=== PATIENT | female | born 1935 | race Caucasian/White ===

== ENCOUNTER 2016-12-31 04:06 | Emergency (ER) | payer OTHER ==
[2016-12-31 04:21] VITALS: BP 165/69
--- NOTE | 2016-12-31 04:21 | ED HEAD/FACIAL INJ COMPLAINT ---
History of Present Illness General Chief Complaint: Laceration Procedure Stated Complaint: HEAD LAC S/P FALL DENIES LOC Source: patient, family Exam Limitations: no limitations Vital Signs & Intake/Output Vital Signs & Intake/Output Vital Signs Date Time Temp Pulse Resp B/P B/P Pulse O2 O2 Flow FiO2 Mean Ox Delivery Rate 12/31 0421 97.9 63 18 165/69 95 Room Air Allergies Coded Allergies: No Known Allergies (12/31/16) Triage Nurses Notes Reviewed? 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 She states that she awoke to go to the bathroom, "because my stools are soft and it just comes out. " She states that she tripped and fell. Her head hit the corner of the dresser. She had no loss of consciousness. She was able to ambulate afterwards. She notes no other pain or injury. She notes the bleeding of a right forehead laceration self resolved. She has no dizziness or headache at present. She is otherwise well. Past History Medical History Any Pertinent Medical History? see below for history Cancer(s): renal cell carcinoma with mets to lung and brain, undergoing xrt Surgical History Surgical History: non-contributory Family History Hx Contributory? No Review of Systems Review of Systems Constitutional: Reports: no symptoms. EENTM: Reports: no symptoms. Respiratory: Reports: no symptoms. Cardiovascular: Reports: no symptoms. GI: Reports: no symptoms. Genitourinary: Reports: no symptoms. Musculoskeletal: Reports: no symptoms. Skin: Reports: no symptoms. Neurological/Psychological: Reports: no symptoms. Hematologic/Endocrine: Reports: no symptoms. Immunologic/Allergic: Reports: no symptoms. All Other Systems: Reviewed and Negative Physical Exam Physical Exam General Appearance: well developed/nourished, mild distress Head: 2cm right forehead laceration, no active bleeding. no focal bony tenderness. Eyes: Bilateral: PERRL, EOMI. Ears, Nose, Throat: normal pharynx, normal ENT inspection, hearing grossly normal Neck: normal inspection, supple Respiratory: normal breath sounds Cardiovascular: regular rate/rhythm Gastrointestinal: soft, non-tender Back: normal inspection Extremities: normal inspection, normal range of motion, no edema Psychiatric: awake, alert, oriented x 3 Cranial Nerves: normal hearing, normal speech, PERRL Coordination/Gait: normal gait Motor/Sensory: no motor/sensory deficits Skin: intact, normal color, warm/dry Lymphatic: no anterior cervical rosaura Progress Differential Diagnosis: ICH, orbit fracture, laceration Plan of Care: Orders Procedure Date/time Status CT HEAD WO IV CONTRAST 12/[address] CERV SPINE WO IV CONTRAST 12/31 420 Active Diagnostic Imaging: Viewed by Me: CT Scan. Discussed w/RAD: CT Scan. Radiology Impression: head ct... multiple metastases... no acute change Comments: PATIENT: DUC CABRALES PRESENT AGE: 81 PATIENT ACCOUNT NO: [id number] : 36 LOCATION: [facility] ORDERING PHYSICIAN: HARPREET CAN MD SERVICE DATE: 12/31/16 EXAM TYPE: CAT - CT CERV SPINE WO IV CONTRAST; CT HEAD WO IV CONTRAST EXAMINATION: NONCONTRAST HEAD CT NONCONTRAST CERVICAL SPINE CT INDICATION INFORMATION: Known brain metastases. Fall with forehead laceration. COMPARISON: None. TECHNIQUE: Separate noncontrast CT examinations of the head and cervical spine were performed. Coronal and sagittal images were created for each examination at the technologist workstation. FINDINGS: Head: There is no evidence of acute intracranial hemorrhage or territorial infarction. No abnormal mass effect or midline shift is seen. Roman to white matter differentiation is well preserved. No extra-axial fluid collections are identified. No hydrocephalus. Proportional prominence of the ventricles and sulcal spaces is consistent with mild volume loss. There are multiple hyperattenuating foci visualized, most prominent within the bilateral frontal and parietal lobes. There is surrounding hypoattenuation consistent with edema. These correspond to the clinical history of metastatic disease. No prior available for comparison to evaluate stability. Right high parietal subgaleal hematoma. No calvarial fracture.. The mastoid air cells and visualized portions of the paranasal sinuses are well aerated. Cervical spine: There is anatomic alignment of the vertebral bodies and posterior elements. The atlantoaxial and atlantooccipital articulations are intact. Vertebral body heights are maintained. There is multilevel intervertebral disc space narrowing with endplate osteophyte formation and facet arthropathy. No evidence of acute fracture. No prevertebral soft tissue swelling. Multiple nodules are seen at the lung apices. The thyroid gland is unremarkable. Enlarged abnormal lymph nodes are seen in the left supraclavicular region. IMPRESSION: 1. No acute intracranial hemorrhage. Multiple metastatic brain lesions are noted. 2. No acute fracture or malalignment of the cervical spine. Supraclavicular lymphadenopathy noted. Multiple pulmonary nodules. Moderate degenerative changes of the cervical spine. DICTATED BY: HUSSAIN POSADAS MD DATE/TIME DICTATED:12/31/16505 INFORMATION ASSURANCE ANALYST:SHERI DATE/TIME TRANSCRIBED:12/31/16505 CONFIDENTIAL, DO NOT COPY WITHOUT APPROPRIATE AUTHORIZATION. <Electronically signed in Other Vendor System> SIGNED BY: HUSSAIN POSADAS MD 12/31 0513 Departure Departure Disposition: HOME OR SELF CARE Condition: Stable Clinical Impression Primary Impression: Head injury Secondary Impressions: Brain metastases, Forehead laceration Departure Forms: Customer Survey General Discharge Information Comments discussed results at length, wound repair is excellent... ct scan non acute... pt safe for discharge. close follow up encouraged. Procedures Laceration/Wound Repair Laceration/Wound Repair: Wound Location: head Wound's Depth, Shape: linear Wound Length (cm): 2 Wound Explored: clean, no foreign body removed Irrigated w/ Saline (ccs): 100 Betadine Prep? No Wound Repaired With: Steri-strips, Dermabond
--- NOTE | 2016-12-31 05:13 | CT SCAN REPORT ---
EXAMINATION: NONCONTRAST HEAD CT NONCONTRAST CERVICAL SPINE CT INDICATION INFORMATION: Known brain metastases. Fall with forehead laceration. COMPARISON: None. TECHNIQUE: Separate noncontrast CT examinations of the head and cervical spine were performed. Coronal and sagittal images were created for each examination at the technologist workstation. FINDINGS: Head: There is no evidence of acute intracranial hemorrhage or territorial infarction. No abnormal mass effect or midline shift is seen. Roman to white matter differentiation is well preserved. No extra-axial fluid collections are identified. No hydrocephalus. Proportional prominence of the ventricles and sulcal spaces is consistent with mild volume loss. There are multiple hyperattenuating foci visualized, most prominent within the bilateral frontal and parietal lobes. There is surrounding hypoattenuation consistent with edema. These correspond to the clinical history of metastatic disease. No prior available for comparison to evaluate stability. Right high parietal subgaleal hematoma. No calvarial fracture.. The mastoid air cells and visualized portions of the paranasal sinuses are well aerated. Cervical spine: There is anatomic alignment of the vertebral bodies and posterior elements. The atlantoaxial and atlantooccipital articulations are intact. Vertebral body heights are maintained. There is multilevel intervertebral disc space narrowing with endplate osteophyte formation and facet arthropathy. No evidence of acute fracture. No prevertebral soft tissue swelling. Multiple nodules are seen at the lung apices. The thyroid gland is unremarkable. Enlarged abnormal lymph nodes are seen in the left supraclavicular region. IMPRESSION: 1. No acute intracranial hemorrhage. Multiple metastatic brain lesions are noted. 2. No acute fracture or malalignment of the cervical spine. Supraclavicular lymphadenopathy noted. Multiple pulmonary nodules. Moderate degenerative changes of the cervical spine.
== END 2016-12-31 04:53 ==
LOC: ERH 04:06
DX: S01.81XA Laceration without foreign body of other part of head, initial encounter (principal); S09.90XA Unspecified injury of head, initial encounter; C79.31 Secondary malignant neoplasm of brain; W19.XXXA Unspecified fall, initial encounter; Y93.9 Activity, unspecified; Y92.9 Unspecified place or not applicable

== ENCOUNTER 2017-02-01 12:33 | Observation (INO) | payer OTHER ==
[~2017-02-01] VITALS: Ht 157.5 cm; Wt 44.5 kg
--- NOTE | 2017-02-01 12:55 | ED AMS/SEIZURE/WEAK/DIZZY ---
History of Present Illness General Chief Complaint: Altered Mental Status Stated Complaint: BIBA FOR UNRESPONSIVE Source: family, old records, EMS Exam Limitations: unable to give history, clinical condition Vital Signs & Intake/Output Vital Signs & Intake/Output Vital Signs Date Time Temp Pulse Resp B/P B/P Pulse O2 O2 Flow FiO2 Mean Ox Delivery Rate 02/03 1108 Nasal 1.5L Cannula 02/03 0627 98.1 72 20 120/50 96 Nasal 1.5L Cannula 02/03 0000 Nasal 2.0L Cannula 02/02 2202 97.6 76 18 128/54 95 Nasal 1.5L Cannula 02/02 1422 98.2 60 20 118/60 93 ED Intake and Output 02/03 0000 02/02 1200 Intake Total 220 155 Output Total 400 200 Balance -180 -45 Intake, IV 100 155 Intake, Oral 120 0 Number 0 0 Bowel Movements Output, Urine 400 200 Allergies Coded Allergies: No Known Allergies (12/31/16) Reconcile Medications Amlodipine Besylate 5 MG TABLET 2 TAB PO DAILY BLOOD PRESSURE (Reported) Escitalopram Oxalate 10 MG TABLET 1 TAB PO DAILY DEPRESSION (Reported) Metoprolol Tartrate 50 MG TABLET 1 TAB PO BID BLOOD PRESSURE (Reported) Potassium Chloride 20 MEQ TAB.ER.PRT 1 TAB PO DAILY ELECTROLYTES (Reported) Simvastatin (Simvastatin*) 40 MG TABLET 1 TAB PO QPM CHOLESTEROL (Reported) Triage Nurses Notes Reviewed? yes HPI: Patient presents for evaluation of an episode of unresponsiveness. According to EMS the patient was found in her residence by family, with whom she lives, by her bed on the floor. She was not responsive to interaction. Family states that she is typically very high functioning. Past History Medical History Any Pertinent Medical History? see below for history Neurological: "SPOTS ON BRAIN' EENT: NONE Cardiovascular: NONE Respiratory: NONE Gastrointestinal: NONE Hepatic: NONE Renal: NONE Musculoskeletal: NONE Psychiatric: NONE Endocrine: NONE Cancer(s): renal cell carcinoma with mets to lung and brain, undergoing xrt Surgical History Surgical History: non-contributory Psychosocial History What is your primary language Chinese Family History Hx Contributory? No Review of Systems Review of Systems Constitutional: Reports: no symptoms. Comments pt unable to provide ROS due to clinical condition Physical Exam Physical Exam General Appearance: UNRESPONSIVE Comments: Dried blood in a "mustache pattern" with no apparent trauma after cleaning Gen.: Well-nourished, well-developed, no acute respiratory distress. Head: Normocephalic, atraumatic Eyes: Normal inspection bilaterally, unable to assess extraocular movements due to lack of cooperation, pupils small but reactive Ears: Normal inspection bilaterally Nose: Normal inspection Throat/mouth : Dry mucosa Neck: Cervical collar in place Heart: Regular rate and rhythm, no murmurs rubs or gallops Lungs: Clear to auscultation bilaterally with normal air entry Chest: No apparent trauma Back: No apparent trauma Abdomen: Soft, nondistended, normal bowel sounds, mild tympany Pelvis: Stable Extremities: Upper extremity is flexed at the elbow, bilateral Babinski sign, otherwise no trauma Neurologic: Unable to assess Skin: warm and dry Psychiatric: Unable to assess Core Measures ACS in differential dx? No CVA/TIA Diagnosis: No Severe Sepsis Present: No Septic Shock Present: No Progress Differential Diagnosis: arrythmia, anemia, CVA/stroke, dehydration, electrolyte imbalance, GI bleed, hypoglycemia, hypoxia, intracranial Hem., intracranial mass /tumor, pneumonia, seizure disorder, UTI/pyelo Plan of Care: Orders Procedure Date/time Status PT Evaluate & Treat 02/03 UNK Active Theraputic Activities 15 Min 02/03 UNK Complete Gait Training, 15 Min 02/03 UNK Complete PT EVAL LOW COMPLEX 20 MIN 02/03 UNK Complete Regular Diet 02/02 L Active Seizure Precautions 02/02 2359 Active OXYGEN SETUP (GEN) 02/02 1600 Complete [place], Insertion/Removal/Asses 02/02 1317 Active SWALLOW GOAL STATUS 02/02 UNK Complete SWALLOW CURRENT STATUS 02/02 UNK Complete Evaluation, Swallowing 02/02 UNK Complete OXYGEN SETUP CHG 02/02 UNK Complete OXYGEN 02/02 UNK Complete Current Medications Sig/Tayo Start time Last Medication Dose Stop Time Status Admin Dexamethasone 4 MG Q6 02/03 1200 AC (Decadron) Levetiracetam 500 MG Q12H 02/02 1700 AC 02/03 (Keppra) 0549 N/A 1 UNIT (No Carrier) Heparin Sodium 5,000 UNIT Q8 02/02 1400 AC 02/03 (Porcine) 0548 Omeprazole 20 MG DAILY AC 02/02 1312 AC 02/03 (Prilosec) 0639 Ondansetron HCl 4 MG Q6P PRN 02/02 0130 AC (Zofran) Hydralazine HCl 5 MG SEE ADMIN CRITERIA.. 02/01 2200 AC (Apresoline) Lorazepam 1 MG Q6PRN PRN 02/01 2200 AC (Ativan) Morphine Sulfate 2 MG Q4P PRN 02/01 2200 AC (Morphine) Diagnostic Imaging: Discussed w/RAD: CT Scan. Radiology Impression: PATIENT: DUC CABRALES PRESENT AGE: 81 PATIENT ACCOUNT NO: [id number] : 36 LOCATION: [facility] ORDERING PHYSICIAN: FILIBERTO FLETCHER MD SERVICE DATE: 02/01/17 EXAM TYPE: CAT - CT CERV SPINE WO IV CONTRAST; CT HEAD WO IV CONTRAST EXAMINATION: CT HEAD AND CT CERVICAL SPINE CLINICAL INFORMATION: Terminal cancer found unresponsive. COMPARISON: CT brain and CT cervical spine 12/31/2016. TECHNIQUE: 5 mm thin axial and 2.5 mm thin coronal images of brain were obtained. Subsequently 2.5 mm thin axial and 2 mm thin reformatted sagittal and coronal images of brain were obtained. Dose 780. FINDINGS: Brain: There are multiple hyperdense multiple lesions throughout both cerebral hemispheres with vasogenic edema there is a new large lesion measuring 2.2 cm in left frontoparietal region adjacent to the central sulcus image 21, series 3 with moderate vasogenic edema. Previously seen smaller lesions in the right frontal lobe and left frontal lobe have increased in size. There is a right posterior parietal no hyperdense lesion with edema but no midline shift. The lateral ventricles are enlarged and so are the cortical sulci. There is no intra-axial or extra-axial bleed. The bone windows reveal no calvarial abnormality. Bilateral paranasal sinuses and mastoid air cells are well-aerated. Cervical spine: On sagittal images there is mild straightening of cervical lordosis. Grade 1 anterolisthesis C4 over C5 and C5 over C6 is noted. Mild loss of C5-C6 at C4-C5 disc heights is noted. There is C2-C3 through C7-T1 bilateral facet joint hypertrophy and arthropathy. IMPRESSION: Multiple metastatic brain lesions. There are new brain lesions as well as the previously noted brain lesions are slightly larger. There is vasogenic edema in the new lesions. No midline shift seen. There is no calvarial lesions. No acute bleed is seen. Mild cerebral volume loss. Grade 1 anterolisthesis C4 over C5 and C5-C6 with degenerative disc changes at the C5-C6 and C4-C5 disc levels. There is no visible acute fracture or dislocation. There are degenerative facet joint arthropathy throughout the cervical spine. DICTATED BY: BRITTANY LONDONO MD DATE/ TIME DICTATED:02/01/171428 MEDICAL CENTER REPRESENTATIVE:SHERI DATE/TIME TRANSCRIBED: 02/01/171428 CONFIDENTIAL, DO NOT COPY WITHOUT APPROPRIATE AUTHORIZATION. < Electronically signed in Other Vendor System> SIGNED BY: BRY YA,BRITTANY 1447 Initial ED EKG: NSR, rate (83), LAFB Comments: 1539 have updated salome family on testing. They state that because she was being started on immune modulating her to treat her cancer, her steroids were being weaned. I suspect this is allowed the edema seen on CAT scan to increase resulting in her presentation today. The family does not want any heroic measures but they feel it's reasonable to continue her current medications. In fact she seems to have improved some during her emergency department stay, becoming more interactive. I have ordered Decadron. 17:47 family updated. vitals stable. pt to be placed in hospice. Departure Departure Disposition: STILL A PATIENT Condition: Stable Clinical Impression Primary Impression: Brain metastases Referrals: ZUHAIR CHAUDHRY MD (PCP/Family) Departure Forms: Customer Survey General Discharge Information Observation Note Spoke With: NOEL YA,NICOLA Lino Physician Advisor Notified: FILIBERTO PERKINS DO Place Patient In: Non-ED OBS Care Area Rationale for Observation: My rational for observation is as follows patient presents with unresponsiveness likely secondary to worsening brain metastasis and vasogenic edema. The patient cannot be treated as an outpatient under these circumstances. sHe was recently weaned to a lower dose of steroids and I feel this has likely contributed to worsening edema and her resulting unresponsiveness. I do not feel she can be treated as an outpatient because she is unable to care for herself and the level of care she currently requires is beyond the capacity of her family. They would be unable to provide the IV Decadron that the patient would benefit from. I feel she requires hospitalization for treatment with IV Decadron to hopefully decrease the edema and improve her clinical condition.
[2017-02-01 13:22] LABS: ABSOLUTE BASOPHIL COUNT 0.1 /CUMM (0.0-0.2); ABSOLUTE EOSINOPHIL COUNT 0 /CUMM (0.0-0.7); ABSOLUTE GRANULOCYTE CT 16.6 /CUMM (1.4-6.5); ABSOLUTE LYMPH COUNT 0.4 /CUMM (1.2-3.4); BASOPHIL % 0.4 % (0.0-2.0); EOSINOPHIL % 0 % (0-5); GRANULOCYTE % 91.6 % (42.2-75.2); HEMATOCRIT 46.3 % (37-47); MEAN CORPUSCULAR HGB 29.1 PG (27.0-31.0); MEAN CORPUSCULAR HGB CONC 31.5 G/DL (33.0-37.0); MEAN CORPUSCULAR VOLUME 92.5 FL (81.0-99.0); MEAN PLATELET VOLUME 6.4 FL (7.4-10.4); PLATELET COUNT 238 /CUMM (130-400); RBC DISTRIBUTION WIDTH 19.7 % (11.5-14.5); RED BLOOD CELL CT 5.01 /CUMM (4.20-5.40); WHITE BLOOD CELL COUNT 18.1 /CUMM (4.8-10.8)
--- NOTE | 2017-02-01 14:47 | CT SCAN REPORT ---
EXAMINATION: CT HEAD AND CT CERVICAL SPINE CLINICAL INFORMATION: Terminal cancer found unresponsive. COMPARISON: CT brain and CT cervical spine 12/31/2016. TECHNIQUE: 5 mm thin axial and 2.5 mm thin coronal images of brain were obtained. Subsequently 2.5 mm thin axial and 2 mm thin reformatted sagittal and coronal images of brain were obtained. Dose 780. FINDINGS: Brain: There are multiple hyperdense multiple lesions throughout both cerebral hemispheres with vasogenic edema there is a new large lesion measuring 2.2 cm in left frontoparietal region adjacent to the central sulcus image 21, series 3 with moderate vasogenic edema. Previously seen smaller lesions in the right frontal lobe and left frontal lobe have increased in size. There is a right posterior parietal no hyperdense lesion with edema but no midline shift. The lateral ventricles are enlarged and so are the cortical sulci. There is no intra-axial or extra-axial bleed. The bone windows reveal no calvarial abnormality. Bilateral paranasal sinuses and mastoid air cells are well-aerated. Cervical spine: On sagittal images there is mild straightening of cervical lordosis. Grade 1 anterolisthesis C4 over C5 and C5 over C6 is noted. Mild loss of C5-C6 at C4-C5 disc heights is noted. There is C2-C3 through C7-T1 bilateral facet joint hypertrophy and arthropathy. IMPRESSION: Multiple metastatic brain lesions. There are new brain lesions as well as the previously noted brain lesions are slightly larger. There is vasogenic edema in the new lesions. No midline shift seen. There is no calvarial lesions. No acute bleed is seen. Mild cerebral volume loss. Grade 1 anterolisthesis C4 over C5 and C5-C6 with degenerative disc changes at the C5-C6 and C4-C5 disc levels. There is no visible acute fracture or dislocation. There are degenerative facet joint arthropathy throughout the cervical spine.
--- NOTE | 2017-02-01 15:54 | RADIOLOGY REPORT ---
EXAMINATION: XR CHEST PORTABLE CLINICAL INFORMATION: An 81-year-old female, unresponsive, history of cancer. Suspected aspiration. COMPARISON: None. TECHNIQUE: Portable frontal view of the chest was obtained. FINDINGS: The cardiomediastinal silhouette is mildly enlarged. There are multiple ill-defined scattered lung nodules identified bilaterally, the largest seen at left upper lung zone, measures approximately 2.7 cm at its maximum dimension, may represent metastatic disease. Superimposed ill-defined patchy opacification is also noted at right lower lung field as well as left lower lung field, may represent superimposed pneumonia. There is no pleural effusion present. The visualized upper abdomen is unremarkable. IMPRESSION: Multiple scattered ill-defined lung nodules are noted bilaterally with the largest measuring 2.7 cm, seen at left upper lung zone, may represent metastatic disease in this patient with history of cancer. Superimposed ill-defined patchy opacities are also noted at both lung bases, may represent superimposed pneumonia.
--- NOTE | 2017-02-01 19:11 | History & Physical ---
YARA YA,[facility] 02/01/171909: General Information and HPI MD Statement: I have seen and personally examined DUC CABRALES and documented this H&P. The patient is a 81 year old F who presented with a patient stated chief complaint of [Altered mental status]. Source of Information: family Exam Limitations: not alert/orientated, clinical condition History of Present Illness: The patient is an 81 year old woman with a PMH of HTN, HLD, depression, and metastatic renal cell cancer diagnosed in November 2016. She had metastasis to the brain and received radiotherapy sessions in December 2016. She was then placed on dexamethasone 4 mg BID which was weaned off on Jan 15 2017 for her to receive a dose of Opdivo. She did not tolerate the medication and had episodes of weakness and vomitting which gradually resolved over about a week. She was in her usual active, communicative and ambulant state of health until last night when her family noted she was slightly confused and slept on the wrong side of her bed. This morning after she did not get up as usual, her son when to her bedroom around noon and found her unresponsive and fallen on the ground in her bedroom with stool smeared around the room. EMS was called and the patient was brought in to The ER. She received IV dexamethasone 8 mg in the ER and her mental status slightly improved to the point she was able to communicate, albeit in a non- verbal fashion by nodding yes to simple questions when asked by the familiar voices and faces of her family members. She was not responsive to clinical staff. Allergies/Medications Allergies: Coded Allergies: No Known Allergies (12/31/16) Past History Travel History Traveled to [place] past 21 day No Medical History Neurological: "SPOTS ON BRAIN' EENT: NONE Cardiovascular: NONE Respiratory: NONE Gastrointestinal: NONE Hepatic: NONE Renal: NONE Musculoskeletal: NONE Psychiatric: NONE Endocrine: NONE Cancer(s): renal cell carcinoma with mets to lung and brain, undergoing xrt NURSING CLINICAL DIRECTOR/Reproductive: NONE Surgical History Surgical History: non-contributory Past Family/Social History Family History Relations & Conditions if any Relation not specified for: *No pertinent family history Psychosocial History Where do you live? Home Who Do You Live With? child ETOH Use: denies use Illicit Drug Use: denies illicit drug use Review of Systems Review of Systems Constitutional: Reports: see HPI. Cardiovascular: Reports: syncope. Denies: chest pain, palpitations. Respiratory: Denies: cough, short of breath. GI: Denies: constipation, diarrhea (As per family). Neurological/Psychological: Reports: other (Aphasia). Exam & Diagnostic Data Last 24 Hrs of Vital Signs/I&O Vital Signs Date Time Temp Pulse Resp B/P B/P Pulse O2 O2 Flow FiO2 Mean Ox Delivery Rate 02/01 2011 97.7 79 18 138/60 96 Nasal Cannula 02/02 2000 Nasal 2.0L Cannula 02/01 1842 97.9 85 12 145/68 96 Nasal 2.0L Cannula 02/01 1803 98.9 84 14 153/70 97 Nasal 2.0L Cannula 02/01 1639 97.0 78 22 125/60 97 Nasal Cannula 02/01 1432 97.6 81 18 151/68 95 Nasal 2.0L Cannula 02/01 1317 98.4 79 22 164/70 96 Nasal 2.0L Cannula 02/01 1311 96 Nasal 2.0L Cannula 02/01 1256 98.6 80 16 191/79 96 Nasal 2.0L Cannula Intake & Output 02/01 1600 02/01 0800 02/01 0000 Intake Total Output Total 400 Balance -400 Output, Urine 400 Patient 98 lb Weight Physical Exam General Appearance No Acute Distress, Drowsy, minimally cooperative Skin No Breakdown Skin Temp/Moisture Exam: Warm/Dry Sepsis Skin Exam (color): Normal for Ethnicity HEENT Atraumatic, PERRLA, EOMI, Mucous Membr. moist/pink Neck Supple, No JVD, No thryomegaly, +2 Carotid Pulse wo Bruit Lymphatic Cervical nl Cardiovascular Regular Rate, Normal S1, Normal S2, No Murmurs Lungs Clear to Auscultation, Normal Air Movement Abdomen Normal Bowel Sounds, Soft, No Tenderness, No Hepatospenomegaly, No Masses Neurological Reflexes 2+ (In upper limbs), Hypertonia in legs, Babinski reflex positive bilateral, Sluggish knee jerk bilateraly Extremities No Edema, Normal Pulses Vascular Normal Pulses, Pulses Symmetrical Last 24 Hrs of Labs/Chandra: Laboratory Tests 02/01/17 1305: Urine Color YEL, Urine Clarity CLEAR, Urine pH 6.0, Ur Specific [place] 1.020, Urine Protein 100 H, Urine Ketones NEG, Urine Nitrite NEG, Urine Bilirubin NEG, Urine Urobilinogen 0.2, Ur Leukocyte Esterase NEG, Ur Microscopic SEDIMENT EXAMINED, Urine RBC 5-10 H, Urine WBC RARE, Ur Epithelial Cells RARE, Urine Hemoglobin SMALL H, Urine Glucose NEG 02/01/17 1258: Anion Gap 13, Estimated GFR > 60, BUN/Creatinine Ratio 35.0 H, Glucose 135 H, Calcium 9.0, Total Bilirubin 0.8, AST 31, ALT 58 H, Alkaline Phosphatase 134 H , Troponin I 0.26 *H, Total Protein 6.3, Albumin 3.2 L, Globulin 3.1, Albumin/ Globulin Ratio 1.0 L, TSH 1.180, Thyroxine (T4) 6.1, Thyroxine Binding Indx 38.9, CBC w Diff MAN DIFF ORDERED, RBC 5.01, MCV 92.5, MCH 29.1, RDW 19.7 H, MPV 6.4 L, Gran % 91.6 H, Lymphocytes % 2.3 L, Monocytes % 5.7, Eosinophils % 0, Basophils % 0.4, Absolute Granulocytes 16.6 H, Absolute Lymphocytes 0.4 L, Absolute Monocytes 1.0 H, Absolute Eosinophils 0, Absolute Basophils 0.1, Platelet Estimate VERIFIED BY SMEAR, Polychromasia 1+, Anisocytosis 1+, PUBS MCHC 31.5 L, Serum Alcohol < 10.0 02/01/17 1255: Troponin I Cancelled 02/01/17 1205: Urine Opiates Screen < 100.00, Methadone Screen 46, Barbiturate Screen < 60, Ur Phencyclidine Scrn < 6.00, Amphetamines Screen < 100, U Benzodiazepines Scrn < 85, Urine Cocaine Screen < 50, Urine Cannabis Screen < 5.00 Microbiology 02/01 131 URINE ROUT: Urine Culture - CAN Cancelled: DUP.ORDER SEE [id number] 02/01 1305 URINE ROUT: Urine Culture - CAN Cancelled: DUP ORDER 02/01 1305 URINE ROUT: Urine Culture - RECD Diagnostic Data Other Results CT head, cervical spine, chest x-ray: 1. Multiple metastatic brain lesions. There are new brain lesions as well as the previously noted brain lesions are slightly larger. There is vasogenic edema in the new lesions. No midline shift seen. There is no calvarial lesions. 2 No acute bleed is seen. 3. Mild cerebral volume loss. 4. Grade 1 anterolisthesis C4 over C5 and C5-C6 with degenerative disc changes at the C5-C6 and C4-C5 disc levels. There is no visible acute fracture or dislocation. There are degenerative facet joint arthropathy throughout the cervical spine. 5. Multiple scattered ill-defined lung nodules are noted bilaterally with the largest measuring 2.7 cm, seen at left upper lung zone, may represent metastatic disease in this patient with history of cancer. Superimposed ill-defined patchy opacities are also noted at both lung bases, may represent superimposed pneumonia. Assessment/Plan Assessment: The patient is an 81 year old woman with a PMH of HTN, HLD, depression, and metastatic renal cell cancer diagnosed in November 2016. She had metastasis to the brain and received radiotherapy sessions in December 2016. She was then placed on dexamethasone 4 mg BID which was weaned off on Jan 15 2017 for her to receive a dose of Opdivo. She did not tolerate the medication and had episodes of weakness and vomitting which gradually resolved over about a week. She now presents with altered mental status and examination and radiological features in keeping with vasogenic cerebral edema from brain metastases. She has responded slightly to dexamethasone IV 8 mg and her family is considering hospice care if she does not improve. Labs: WBC 18.1, neutrophils 91%, hemoglobin 14.6, hematocrit 46.3, platelet 238, sodium 136, BUN 21, creatinine 0.6, glucose 135, ALT 58, alkaline phosphatase 134, troponin 0.26. UA U tox unremarkable. Her overall picture is in keeping with vasogenic cerebral edema from brain metastasis. Her prognosis is poor but her family want to try some dexamethasone. If no significant response they will like the patient to be in inpatient hospice. Problem list 1. Metastatic renal cell carcinoma 2. Vasogenic cerebral edema from brain metastases 3. Toxic encephalopathy 4. Hypertension 5. Lung nodules-likely metastatic Plan * Patient's family are considering hospice care if patient does not improve with dexamethasone * Place in General Medicine observation * IV dexamethasone 4 mg Q 6hrsX4 doses * NPO as patient is an aspiration risk * Monitor vital signs closely * IV morphine 4 Mg Q6prn for severe pain * IV Zofran or Compazine PRN for nausea vomiting * IV ativan 1 mg Q 6hrs for seizure * If patient develops seizures overnight, start loading dose of IV Keppra * Give IV hydralazine 5 mg Q 4hrs for SBP>160 mmhg * DVT prophylaxis with ALPS * DNR/DNI * Hospice consult in a.m As Ranked By This Provider Problem List: 1. Brain metastases 2. Head injury Core Measures/Miscellaneous Acute Coronary Syndrome ACS Diagnosis: No Cerebrovascular Accident CVA/TIA Diagnosis: No Congestive Heart Failure CHF Diagnosis: No Venous Thromboembolism VTE Risk Factors: Acute medical illness, Age > 40 No [facility] VTE prophylaxis d/t: No contraindications No VTE Pharm Prophylaxis d/t: No contraindications VTE Diagnosis: No VTE Type: NONE VTE Confirmed by (Test): NONE Severe Sepsis Severe Sepsis Present: No Septic Shock Septic Shock Present: No Miscellaneous Documentation Attending Case Discussed With: ZAK HUGHES MD Primary Care Physician: ZUHAIR CHAUDHRY MD Patient sees these Specialists Dr. Ordonez, [place] [facility] Level of Patient Care: General Medicine ZAK HUGHES 02/01/17 0794: General Information and HPI Allergies/Medications Home Med list Amlodipine Besylate 5 MG TABLET 2 TAB PO DAILY BLOOD PRESSURE (Reported) Escitalopram Oxalate 10 MG TABLET 1 TAB PO DAILY DEPRESSION (Reported) Metoprolol Tartrate 50 MG TABLET 1 TAB PO BID BLOOD PRESSURE (Reported) Potassium Chloride 20 MEQ TAB.ER.PRT 1 TAB PO DAILY ELECTROLYTES (Reported) Simvastatin (Simvastatin*) 40 MG TABLET 1 TAB PO QPM CHOLESTEROL (Reported) Attending MD Review Statement Attending Statement Attending MD Statement: examined this patient, discuss w/resident/PA/PROCESS ENGINEERING INTERN, agreed w/resident/PA/PROCESS ENGINEERING INTERN, discussed with family, reviewed EMR data (avail), reviewed images, amended to note Attending Assessment/Plan: CC: found unresponsive PMH: HTN, HLD, depression, metastatic renal cell cancer Patient was brought in wire ambulance by her family for found unresponsive on the floor. As per EMS patient lives with her family and last time seen normal was on night before when she went to bed, according to family usually patient is alert and oriented but last night she was more confused. When in the morning she did not come out even at known time they went to check on her and found her on the floor, unresponsive. She was lying next to her bed and medics noticed a plastic garbage pail at bedside which was broken. Family also noticed large amount of stool and dried and scattered over the room, as if she moved around. According to family patient has metastatic renal cell cancer, for which she received radiotherapy to her brain and was started on Decadron orally. Treatment of Decadron was tapered off to try different chemotherapy which patient did not tolerate it well and had nausea and vomiting for which she was admitted to [place]. At that time that treatment was discontinued and patient was resumed on low-dose Decadron on Wednesday, patient was active, talking and ambulating the last night according to family. According to ER note patient was nonverbal, nonresponsive to verbal stimuli upon arrival, opened eyes for pain. But according to family she improved a little bit in ER. Family did not witness any seizures along this course. Vitals: Afebrile, pulse in 70s to 80s, RR 18, blood pressure 164/70, saturating well on room air. On examination: Limited examination as patient does not respond to verbal stimuli, pupils equal bilaterally reactive to light. Does not follow instructions. Spontaneously moves right upper extremity, mild drooping of angle of mouth on left side, abdomen soft, nontender bowel sounds present, CVS: S1-S2 RRR. RS: Unremarkable. Labs: WBC 18.1, neutrophils 91%, hemoglobin 14.6, hematocrit 46.3, platelet 238, sodium 136, BUN 21, creatinine 0.6, glucose 135, ALT 58, alkaline phosphatase 134, troponin 0.26. UA U tox unremarkable. CT head, cervical spine, chest x-ray: 1. Multiple metastatic brain lesions. There are new brain lesions as well as the previously noted brain lesions are slightly larger. There is vasogenic edema in the new lesions. No midline shift seen. There is no calvarial lesions. 2 No acute bleed is seen. 3. Mild cerebral volume loss. 4. Grade 1 anterolisthesis C4 over C5 and C5-C6 with degenerative disc changes at the C5-C6 and C4-C5 disc levels. There is no visible acute fracture or dislocation. There are degenerative facet joint arthropathy throughout the cervical spine. 5. Multiple scattered ill-defined lung nodules are noted bilaterally with the largest measuring 2.7 cm, seen at left upper lung zone, may represent metastatic disease in this patient with history of cancer. Superimposed ill-defined patchy opacities are also noted at both lung bases, may represent superimposed pneumonia. A and P 81 year old female with a history of metastatic renal cell carcinoma presented with altered mental status, found unresponsive on floor. Even though her mental status improved to some extent while in ER, patient still does not respond to verbal stimuli. Does not have any meaningful communication. Findings of worsening intracranial lesions with vasogenic edema are discussed with family. They are aware of poor prognosis but according to son she usually gets better with dexamethasone and wants to give it a try, if she does not improve appropriately they will consider in-house hospice care in morning. There are certain about DNR and DNI and no heroic measures. I also discussed about possibility of seizures, may require Ativan and Keppra if she develops seizures overnight. Given her mental status it is unsafe to give any by mouth medications including her regular antihypertensives. There is no history of fever or chills or chest pain or cough suggestive of pneumonia mentioned on radiograph. It probably represent pulmonary nodule. Leukocytosis can be explained by dexamethasone, patient was receiving at home. + Encephalopathy + Metastatic brain lesion + Metastatic renal cell carcinoma + Multiple lung nodules + History of hypertension - Observe on general medical floor - Continue Decadron 8 mg IV every 8 hours - Continue to monitor neuro status every 4 hours with neuro checks - Nothing by mouth - Saline lock IV - When necessary morphine IV for severe pain - When necessary IV Zofran or Compazine for nausea vomiting - When necessary Ativan for seizure - If patient develops seizures overnight, start loading dose of IV Keppra - If patient spikes fever overnight, start her on Unasyn for possible postobstructive pneumonia. -If persistently hypertensive, try small dose of IV hydralazine - Hold all by mouth medications - Hospice consult in a.m.
[2017-02-01] MEDS ORDERED: AMLODIPINE BESYL5 M1 PO (19:34)
[2017-02-01] MEDS ORDERED: SIMVASTATIN40 M1 PO (19:36)
[2017-02-01] MEDS ORDERED: METOPROLOL TART50 M1 PO (19:36)
[2017-02-01] MEDS ORDERED: ESCITALOPRAM OX10 MG PO (19:36)
[2017-02-01] MEDS ORDERED: POTASSIUM CHLO20 ME2 PO (19:37)
[2017-02-01 20:11] VITALS: BP 138/60
[2017-02-02 07:28] VITALS: BP 140/60
--- NOTE | 2017-02-02 08:22 | PN- Housestaff ---
SANTOSH YA,EWA 02/02/17 0822: Subjective Follow-up For: Metastatic renal cell cancer Episode of altered mental status ? Seizure Complaints: no complaints Subjective: Patient is seen and examined at the bedside. She is having expressive aphagia. Also should respond to verbal commands. She was not oriented x3. Review of Systems Constitutional: Denies: no symptoms. Comments: Patient cannot comment because of her clinical condition. Objective Last 24 Hrs of Vital Signs/I&O Vital Signs Date Time Temp Pulse Resp B/P B/P Pulse O2 O2 Flow FiO2 Mean Ox Delivery Rate 02/02 1422 98.2 60 20 118/60 93 02/02 0800 Nasal 2.0L Cannula 02/02 0728 97.8 74 20 140/60 95 Nasal 2.0L Cannula 02/02 0000 96 Nasal 2.0L Cannula 02/01 2011 97.7 79 18 138/60 96 Nasal Cannula 02/01 2000 Nasal 2.0L Cannula 02/01 1842 97.9 85 12 145/68 96 Nasal 2.0L Cannula 02/01 1803 98.9 84 14 153/70 97 Nasal 2.0L Cannula 02/01 1639 97.0 78 22 125/60 97 Nasal Cannula Intake & Output 02/02 1600 02/02 0800 05 0000 Intake Total 155 0 Output Total 200 200 700 Balance -200 -45 -700 Intake, IV 155 Intake, Oral 0 0 Number 0 Bowel Movements Output, Urine 200 200 700 Patient 44.452 kg Weight Physical Exam General Appearance: Alert, Cooperative, No Acute Distress, generalized muscle wasting, hair loss, Skin: dryness of the skin, Neck: Supple, No JVD Cardiovascular: Normal S1, Normal S2 Lungs: Clear to Auscultation, Normal Air Movement Abdomen: Soft, No Tenderness Extremities: No Clubbing, No Cyanosis, No Edema Vascular: Normal Pulses Assessment/Plan Assessment: 81 year old woman with a PMH of HTN, HLD, depression, and metastatic renal cell cancer diagnosed in November 2016. She had metastasis to the brain and received radiotherapy sessions in December 2016. She was then placed on dexamethasone 4 mg BID which was weaned off on Jan 15 2017 for her to receive a dose of Opdivo. She did not tolerate the medication and had episodes of weakness and vomitting which gradually resolved over about a week. She was in her usual active, communicative and ambulant state of health until last night when her family noted she was slightly confused and slept on the wrong side of her bed. BIBA to [facility] emergency when found to be unresponsive on the ground in her bedroom with stool smeared around the room. Vital signs -temperature 98.2, pulse 60, respiratory rate 20, blood pressure 118 /60, SPO2 93% Pertinent labs -WBC 18.1, granulocytes 91.6, lymphocyte 2.3,Na -136, urine protein 100, Urine culture-no growth after [address] scan of the head -Multiple metastatic brain lesions. There are new brain lesions as well as the previously noted brain lesions are slightly larger. There is vasogenic edema in the new lesions. No midline shift seen. There is no calvarial lesions. Plan - * It was planned, initially, that the patient is going towards hospice care. We placed a consult for hospice nurse, did swallow evaluation and talked to the family. Family is very clear about the prognosis and they do not want any active intervention. * Patient passes swallow evaluation and they started patient on pure and thin diet. She is able to take 100% of her meal. * For the inpatient hospice, patient shouldn't need some criteria, but she is not fitting in, so we will go again for hospice evaluation tomorrow and decide from there. * We placed a consult for oncologist and he advised to continue dexamethasone in high doses. * We will continue inj dexamethasone 4 milligrams IV every 6 hourly. He also advised to place a consult to neurologist for evaluation of a seizure. * We started patient on prophylactic Keppra 500mg by mouth twice a day. * Plan is to discuss with the family about the goals of care and CODE STATUS tomorrow Diet -pure and thin diet DVT prophylaxis-ALP S/heparin CODE STATUS-DNR/DNI Problem List: 1. Cachexia 2. Metastatic renal cell carcinoma Pain Ratin Pain Location: Generalized body Pain Goal: Remain pain free Pain Plan: [id number] Tomorrow's Labs & Rationales: CBC, BEP DVT/Prophylaxis: mechanical, pharmacological SHREE SANCHES 02/02/17 1148: Attending Review Statement Attending Statement Attending MD Statement: examined this patient, discuss w/resident/PA/STEEL HANDLER, agreed w/resident/PA/STEEL HANDLER, discussed with family, reviewed EMR data (avail), discussed with nursing, discussed with case mgmt, reviewed images, amended to note Attending Assessment/Plan: "81 year old female with a history of metastatic renal cell carcinoma presented with altered mental status, found unresponsive on floor. Even though her mental status improved to some extent while in ER, patient still does not respond to verbal stimuli. Does not have any meaningful communication. Findings of worsening intracranial lesions with vasogenic edema are discussed with family. They are aware of poor prognosis but according to son she usually gets better with dexamethasone and wants to give it a try, if she does not improve appropriately they will consider in-house hospice care in morning. There are certain about DNR and DNI and no heroic measures. I also discussed about possibility of seizures, may require Ativan and Keppra if she develops seizures overnight. Given her mental status it is unsafe to give any by mouth medications including her regular antihypertensives. There is no history of fever or chills or chest pain or cough suggestive of pneumonia mentioned on radiograph. It probably represent pulmonary nodule. Leukocytosis can be explained by dexamethasone, patient was receiving at home" ASSESSMENT 1. Metastatic renal cell carcinoma 2. Encephalopathy 3. Mets to brain and lung 4. hypertension. 5. Brain edema. PLAN admit to inpatient medical services follows oncology Dr Norris at [place], family aware about prognosis and does not want heroic measures. c/w iv steroids for now, cont supportive care. obtain previous medical records. consult oncology for prognostication, consult hospice, obtain speech/swallow consult. gi/dvt prophyalxis DNR/DNI
[2017-02-02 14:22] VITALS: BP 118/60
--- NOTE | 2017-02-02 18:40 | Cons- Oncology ---
General Information and HPI Consulting Request Date of Consult: 02/02/17 Requested By: SHREE SANCHES MD Reason for Consult: metastatic renal cell Source of Information: old records Exam Limitations: clinical condition, dementia History of Present Illness: Ms. Hirsch is an 81 y.o. woman with depression, HTN, and stage IV renal cell carcinoma who recently received nivolumab who presented to the [place] ED with confusion. She was found to have intracranial hemorrhagic lesions in 09/10/2016 with follow up MRI in 11/[address] of the chest demonstrated innumerable metastases identified in bilateral lungs. Some examples include a 2.5 cm RICARDO lesion, a 2.7 cm LLL lesion and a 2.1 cm RUL lesion. Large right pleural effusion with adjacent lung collapse. Metastatic foci also identified in pleural effusion, likely reflecting pleural metastases. Example includes a 3.3 cm metastatic focus at right base. Numerous enlarged lymph nodes noted in left supraclavicular region, mediastinum and retrocrural regions. On , a left supraclavicular lymph node FNA was positive for metastatic carcinoma c/w renal primary, most likely clear cell-type cells PAX8+, focally CA-9+. She also started on 12/23-01/06/2107 WBRT with dexamethasone started at 4 mg bid. She was recently tapping off dexamethasone down to 2 mg BID. Per the history from the chart, she was found to be unresponsive in the bathroom. EMS was called and she was taken to ED. Allergies/Medications Allergies: Coded Allergies: No Known Allergies (12/31/16) Home Med List: Amlodipine Besylate 5 MG TABLET 2 TAB PO DAILY BLOOD PRESSURE (Reported) Escitalopram Oxalate 10 MG TABLET 1 TAB PO DAILY DEPRESSION (Reported) Metoprolol Tartrate 50 MG TABLET 1 TAB PO BID BLOOD PRESSURE (Reported) Potassium Chloride 20 MEQ TAB.ER.PRT 1 TAB PO DAILY ELECTROLYTES (Reported) Simvastatin (Simvastatin*) 40 MG TABLET 1 TAB PO QPM CHOLESTEROL (Reported) Current Medications: Current Medications Sig/Tayo Start time Last Medication Dose Route Stop Time Status Admin Dexamethasone 4 MG Q6 02/01 2359 AC 02/02 Dextrose/Water 50 ML IV 02/03 1259 1812 Heparin Sodium 5,000 UNIT Q8 02/02 1400 AC 02/02 (Porcine) SC 1551 Hydralazine HCl 5 MG SEE ADMIN CRITERIA.. 05/29 2200 AC IV Levetiracetam 500 MG Q12H 02/02 1700 AC 02/02 N/A 1 UNIT IV 1637 Lorazepam 1 MG Q6PRN PRN 02/01 2200 AC IV Morphine Sulfate 2 MG Q4P PRN 02/01 2200 AC IV Omeprazole 20 MG DAILY AC 02/02 1312 AC 02/02 PO 1551 Ondansetron HCl 4 MG Q6P PRN 02/02 0130 AC IV Review of Systems Review of Systems: Unable to obtain due to mental status Past History Travel History Traveled to [place] past 21 day No Medical History Blood Transfusion Hx: No Neurological: "SPOTS ON BRAIN' EENT: NONE Cardiovascular: hypertension, hyperlipidemia Respiratory: NONE Gastrointestinal: NONE Hepatic: NONE Renal: NONE Musculoskeletal: NONE Psychiatric: NONE Endocrine: NONE Blood Disorders: NONE Cancer(s): renal cell carcinoma with mets to lung and brain, undergoing xrt TECHNOLOGY OFFICER/Reproductive: NONE Surgical History Surgical History: non-contributory Family History Relations & Conditions If Any: Relation not specified for: *No pertinent family history Psychosocial History Where Do You Live? Home Who Do You Live With? child Smoking Status: Never Smoked ETOH Use: denies use Illicit Drug Use: denies illicit drug use Exam & Diagnostic Data Vital Signs and I&O Vital Signs Date Time Temp Pulse Resp B/P B/P Pulse O2 O2 Flow FiO2 Mean Ox Delivery Rate 02/02 1422 98.2 60 20 118/60 93 02/02 0800 Nasal 2.0L Cannula 02/02 0728 97.8 74 20 140/60 95 Nasal 2.0L Cannula 02/02 0000 96 Nasal 2.0L Cannula 02/01 2011 97.7 79 18 138/60 96 Nasal Cannula 02/02 2000 Nasal 2.0L Cannula 02/01 1842 97.9 85 12 145/68 96 Nasal 2.0L Cannula Intake & Output 02/02 1600 02/02 0800 02/02 0000 Intake Total 220 155 0 Output Total 200 200 700 Balance 20 -45 -700 Intake, IV 100 155 Intake, Oral 120 0 0 Number 0 0 Bowel Movements Output, Urine 200 200 700 Patient 44.452 kg Weight Physical Exam General Appearance: alert, awake, comfortable, thin Head: atraumatic Eyes: Bilateral: PERRL, EOMI. Ears, Nose, Throat: dry mucus membrane Neck: normal inspection, supple Respiratory: normal breath sounds, chest non-tender, no respiratory distress Cardiovascular: regular rate/rhythm Gastrointestinal: normal bowel sounds, soft, non-tender Extremities: no edema Neurologic/Psych: awake, alert, oriented to self and hospital, preservation Skin: warm/dry, ecchymosis Lymphatic: no anterior cervical rosaura Last 48 Hours of Lab Results: Laboratory Tests 02/01 1305 Urines Urine Color (YEL,AMB,STR) YEL Urine Clarity (CLEAR) CLEAR Urine pH (5.0 - 8.0) 6.0 Ur Specific [place] (1.001 - 1.035) 1.020 Urine Protein (NEG,<30 MG/DL) 100 H Urine Ketones (NEG) NEG Urine Nitrite (NEG) NEG Urine Bilirubin (NEG) NEG Urine Urobilinogen (0.1 - 1.0 EU/dl) 0.2 Ur Leukocyte Esterase (NEG) NEG Ur Microscopic SEDIMENT EXAMINED Urine RBC (0 - 5 /HPF) 5-10 H Urine WBC (0 - 2 /HPF) RARE Ur Epithelial Cells (NONE,FEW) RARE Urine Hemoglobin (NEG) SMALL H Urine Glucose (N MG/DL) NEG 02/01 02/01 1258 1255 Chemistry Sodium (137 - 145 mmol/L) 136 L Potassium (3.5 - 5.1 mmol/L) 3.7 Chloride (98 - 107 mmol/L) 99 Carbon Dioxide (22 - 30 mmol/L) 24 Anion Gap (5 - 16) 13 BUN (7 - 17 mg/dL) 21 H Creatinine (0.5 - 1.0 mg/dL) 0.6 Estimated GFR (>60 ml/min) > 60 BUN/Creatinine Ratio (7 - 25 %) 35.0 H Glucose (65 - 99 mg/dL) 135 H Calcium (8.4 - 10.2 mg/dL) 9.0 Total Bilirubin (0.2 - 1.3 mg/dL) 0.8 AST (14 - 36 U/L) 31 ALT (9 - 52 U/L) 58 H Alkaline Phosphatase (<127 U/L) 134 H Troponin I (< 0.11 ng/ml) 0.26 *H Cancelled Total Protein (6.3 - 8.2 g/dL) 6.3 Albumin (3.5 - 5.0 g/dL) 3.2 L Globulin (1.9 - 4.2 gm/dL) 3.1 Albumin/Globulin Ratio (1.1 - 2.2 %) 1.0 L TSH (0.270 - 4.200 uIU/mL) 1.180 Thyroxine (T4) (4.5 - 10.9 ug/dL) 6.1 Thyroxine Binding Indx (23.5 - 40.5 % UPTAKE) 38.9 Hematology CBC w Diff MAN DIFF ORDERED WBC (4.8 - 10.8 /CUMM) 18.1 H RBC (4.20 - 5.40 /CUMM) 5.01 Hgb (12.0 - 16.0 G/DL) 14.6 Hct (37 - 47 %) 46.3 MCV (81.0 - 99.0 FL) 92.5 MCH (27.0 - 31.0 PG) 29.1 RDW (11.5 - 14.5 %) 19.7 H Plt Count (130 - 400 /CUMM) 238 MPV (7.4 - 10.4 FL) 6.4 L Gran % (42.2 - 75.2 %) 91.6 H Lymphocytes % (20.5 - 51.1 %) 2.3 L Monocytes % (1.7 - 9.3 %) 5.7 Eosinophils % (0 - 5 %) 0 Basophils % (0.0 - 2.0 %) 0.4 Absolute Granulocytes (1.4 - 6.5 /CUMM) 16.6 H Absolute Lymphocytes (1.2 - 3.4 /CUMM) 0.4 L Absolute Monocytes (0.10 - 0.60 /CUMM) 1.0 H Absolute Eosinophils (0.0 - 0.7 /CUMM) 0 Absolute Basophils (0.0 - 0.2 /CUMM) 0.1 Platelet Estimate (ADEQUATE) VERIFIED BY SMEAR Polychromasia 1+ Anisocytosis 1+ PUBS MCHC (33.0 - 37.0 G/DL) 31.5 L Toxicology Serum Alcohol (<10 MG/DL) < 10.0 02/01 1205 Toxicology Urine Opiates Screen (>2000 NG/ML) < 100.00 Methadone Screen (>300 NG/ML) 46 Barbiturate Screen (>200 NG/ML) < 60 Ur Phencyclidine Scrn (>25 NG/ML) < 6.00 Amphetamines Screen (>1000 NG/ML) < 100 U Benzodiazepines Scrn (>200 NG/ML) < 85 Urine Cocaine Screen (>300 NG/ML) < 50 Urine Cannabis Screen (>50 NG/ML) < 5.00 Imaging/Other Studies: 02/01/2017: CT head/spine Multiple metastatic brain lesions. There are new brain lesions as well as the previously noted brain lesions are slightly larger. There is vasogenic edema in the new lesions. No midline shift seen. There is no calvarial lesions. No acute bleed is seen. Mild cerebral volume loss. Grade 1 anterolisthesis C4 over C5 and C5-C6 with degenerative disc changes at the C5-C6 and C4-C5 disc levels. There is no visible acute fracture or dislocation. There are degenerative facet joint arthropathy throughout the cervical spine. Assessment/Plan Assessment: Ms. Hirsch is an 81 y.o. woman with depression, HTN, and stage IV renal cell carcinoma who recently received nivolumab who presented to the [place] ED with confusion. She last received nivolumab on 01/15/2017. She was noted to have brain metastases with edema. This may trigger her seizure activity. It is reasonable to have this evaluated. She is currently on high dose dexamethasone. She has previously received WBRT therapy. She may need neurological evaluation for possible seizure activity. She can continue on dexamethasone for now. AED as per neurology evaluation. If goals of care are being discussed, I would recommend discussing patient with her primary oncology Dr. Juan Francisco Coughlin. Recommendations: 1. Dexamethasone 4 mg every 6 hours 2. Evaluation for seizure 3. Goals of care discuss with her primary oncologist Problem List: 1. Metastatic renal cell carcinoma 2. Brain metastases Other Findings/Comments: Please call [phone] with any questions or concerns. Consult Acknowledgment - Thank you for your consult request.
[2017-02-02 22:02] VITALS: BP 128/54
[2017-02-03 06:27] VITALS: BP 120/50
--- NOTE | 2017-02-03 07:12 | PN- Housestaff ---
SANTOSH YA,EWA 02/03/17 0711: Subjective Follow-up For: Metastatic renal cell cancer Episode of altered mental status ? Seizu Complaints: no complaints Subjective: Patient is seen and examined the bedside. She was completely oriented to time, place and person. She responded well to steroid therapy. We discussed about the plan to send her to short-term rehabilitation with daughter and she was willing for that. Review of Systems Constitutional: Denies: no symptoms. Comments: She denies for any active complaints. Objective Last 24 Hrs of Vital Signs/I&O Vital Signs Date Time Temp Pulse Resp B/P B/P Pulse O2 O2 Flow FiO2 Mean Ox Delivery Rate 02/03 1439 96.6 105 20 140/60 96 02/03 1108 Nasal 1.5L Cannula 02/03 0627 98.1 72 20 120/50 96 Nasal 1.5L Cannula 02/03 0000 Nasal 2.0L Cannula 02/02 2202 97.6 76 18 128/54 95 Nasal 1.5L Cannula Intake & Output 02/03 1600 02/03 0800 02/03 0000 Intake Total 350 300 0 Output Total 200 150 200 Balance 150 150 -200 Intake, IV 50 200 Intake, Oral 300 100 0 Number 1 0 0 Bowel Movements Output, Urine 200 150 200 Patient 44.452 kg Weight Physical Exam General Appearance: Alert, Oriented X3, Cooperative, No Acute Distress, scanty hair over the head, generalized muscle wasting, probably secondary to the chemotherapy and the cancer Skin: multiple pigmented hypopigmented patches Cardiovascular: Normal S1, Normal S2 Lungs: Clear to Auscultation, Normal Air Movement Abdomen: Soft, No Tenderness Neurological: Normal Gait, Normal Speech Extremities: No Clubbing, No Cyanosis, No Edema Vascular: Normal Pulses, Pulses Symmetrical Current Medications: Current Medications Sig/Tayo Start time Last Medication Dose Route Stop Time Status Admin Dexamethasone 4 MG Q6 02/03 1200 AC PO Dexamethasone 4 MG Q6 02/01 2359 DC 02/03 Dextrose/Water 50 ML IV 02/03 1259 1229 Heparin Sodium 5,000 UNIT Q8 02/02 1400 AC 02/03 (Porcine) SC 1319 Hydralazine HCl 5 MG SEE ADMIN CRITERIA.. 02/01 220 AC IV Levetiracetam 500 MG BID 02/03 220 AC PO Levetiracetam 500 MG Q12H 02/02 1700 DC 02/03 N/A 1 UNIT IV 0549 Lorazepam 1 MG Q6PRN PRN 02/01 2200 AC IV Morphine Sulfate 2 MG Q4P PRN 02/01 2200 AC IV Omeprazole 20 MG DAILY 02/02 1312 AC 02/03 PO 0639 Ondansetron HCl 4 MG Q6P PRN 02/02 0130 AC IV Assessment/Plan Assessment: 81 year old woman with a PMH of HTN, HLD, depression, and metastatic renal cell cancer diagnosed in November 2016. She had metastasis to the brain and received radiotherapy sessions in December 2016. She was then placed on dexamethasone 4 mg BID which was weaned off on Jan 15 2017 for her to receive a dose of Opdivo. She did not tolerate the medication and had episodes of weakness and vomitting which gradually resolved over about a week. She was in her usual active, communicative and ambulant state of health until last night when her family noted she was slightly confused and slept on the wrong side of her bed. BIBA to [facility] when found to be unresponsive on the ground in her bedroom with stool smeared around the room. Vital signs -temperature 96.6, pulse 105, respiratory 20, blood pressure 140/60, SPO2 96% on room air. Pertinent labs -WBC 18.1, granulocytes 91.6, lymphocyte 2.3,Na -136, urine protein 100, Urine culture-no growth after [address] scan of the head -Multiple metastatic brain lesions. There are new brain lesions as well as the previously noted brain lesions are slightly larger. There is vasogenic edema in the new lesions. No midline shift seen. There is no calvarial lesions. Plan - * It was planned, initially, that the patient is going towards hospice care. We placed a consult for hospice nurse, did swallow evaluation and talked to the family. Family is very clear about the prognosis and they do not want any active intervention. * Patient passes swallow evaluation and they started patient on chopped and thin diet. She is able to take 100% of her meal. * For the inpatient hospice, patient do not need criteria. The patient is planned to go into short-term rehabilitation. * We placed a consult for oncologist and he advised to continue dexamethasone in high doses, with very slow taper. We stopped IV dexamethasone and started her on tablet dexamethasone 4 milligrams every 6 hourly. We will taper it every 4 days. * We took the consult from the neurologist and she advised to start patient on Keppra 500 twice a day. He also advised that patient should follow the neurosurgery. * Possible discharge tomorrow to Short-term rehabilitation. Diet -chopped and thin diet DVT prophylaxis-ALP S/heparin CODE STATUS-DNR/DNI Problem List: 1. Metastatic renal cell carcinoma 2. Brain metastases 3. Cachexia Pain Ratin Pain Location: Not applicable Pain Goal: Remain pain free Pain Plan: [id number] strict Tomorrow's Labs & Rationales: not required as patient is leaving DVT/Prophylaxis: mechanical, pharmacological MYRONSHREE Toney 02/03/17 1059: Attending MD Review Statement Attending Statement Attending MD Statement: examined this patient, discuss w/resident/PA/INSTALLATION SUPERINTENDENT, agreed w/resident/PA/INSTALLATION SUPERINTENDENT, discussed with family, reviewed EMR data (avail), discussed with nursing, discussed with case mgmt, reviewed images, amended to note Attending Assessment/Plan: ASSESSMENT 1. Metastatic renal cell carcinoma 2. Encephalopathy 3. Mets to brain and lung 4. hypertension. 5. Brain edema. PLAN family aware about prognosis and does not want heroic measures. change iv steroids to Po steroids, cont supportive care. seziure prophyalxis as per neuro, f/u neurology and oncology. passed speech/swallow testing obtain previous medical records gi/dvt prophyalxis PT eval for STR DNR/DNI d/c planning, medically stable, f/u PCP as o/p. overall prognosis poor.
--- NOTE | 2017-02-03 08:38 | Cons- Neurology ---
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 Mental status improved after administration of 8 mg of IV dexamethasone. There is no known history of seizures but she has evidence of right lateral tongue biting. She was started on Keppra. Level of alertness has normalized. According to her daughter Mary, however the confusion that she is currently displaying is not her usual baseline. Oncologic/neurologic history as follows, as per her oncologist Dr. Juan Francisco Coughlin, last seen in his office on 01/27/2017: 08/30/2016 pt fell but did not hit head and did not seek care initially 09/10/2016 CT head and MRI brain: intracranial hemorrhagic lesions 09/2016 pt became more forgetful, had fatigue, poor appetite and wt loss 11/2016 MRI brain: multiple intracranial metastases 11/25/2016 LP: cytology found almost no cells; no malignancy 12/18/2016 CT CAP: 12 cm left kidney mass w/ multiple lung metastases and intrathoracic lymphadenopathy 12/20/2016 worsening dyspnea so was admitted to [facility] 12/20/2016 CTA: no PE, right main pulmonary artery appears enlarged, which can be seen with pulmonary arterial hypertension. Innumerable metastases identified in bilateral lungs. Some examples include a 2.5 cm RICARDO lesion, a 2.7 cm LLL lesion and a 2.1 cm RUL lesion. Large right pleural effusion with adjacent lung collapse. Metastatic foci also identified in pleural effusion, likely reflecting pleural metastases. Example includes a 3.3 cm metastatic focus at right base. Numerous enlarged lymph nodes noted in left supraclavicular region, mediastinum and retrocrural regions. Examples include a 2.9 cm left supraclavicular node, a 2.7 cm retrocarinal lymph node and a 2.9 cm retrocrural lymph node 12/21/2016 TIPS: 1700 cc removed w/improvement in dyspnea and hypoxia (weaned to room air); cytology negative for cancer 12/22/2106 brain MRI: 20 supratentorial metastases including the following - 2 in left parietal lobe (both were <10 mm), 1 in right parietal lobe (18 mm, previously 14 mm), and 1 in left frontal lobe centrum semiovale (17 mm, previously 14 mm). Most of these lesions demonstrate mild to moderate amount of adjacent vasogenic edema, no midline shift, questionable 8 mm enhancing lesion in the clivus. Neurosurgery and radiation oncology were consulted and recommended WBRT 12/23/2016 left supraclavicular lymph node FNA: positive for metastatic carcinoma c/w renal primary, most likely clear cell-type cells PAX8+, focally CA-9+ 12/23-01/06/2107 WBRT with dexamethasone started at 4 mg bid 12/31/2016 CT head and cervical spine: brain mets seen; no acute fracture or misalignment of cervical spine. 01/15/2017 C1D1 nivolumab 240 mg 1 week post C1D1 nivolumab (having finished dexamethasone the day before dosing) . For the 3 days after her dose of nivolumab she had increasing fatigue, very little appetite and some vomiting when trying to eat. She was sleeping almost 20 hours/day. Brain MRI showed increasing vasogenic edema around multiple metastases and 2 metastases much larger. She was restarted on dexamethasone 4 bid with almost immediate improvement. Notably, her energy and appetite are much better but she is still somewhat confused. His plan per his note was to continue to taper the dexamethasone. Allergies/Medications Allergies: Coded Allergies: No Known Allergies (12/31/16) Home Med List: Amlodipine Besylate 5 MG TABLET 2 TAB PO DAILY BLOOD PRESSURE (Reported) Escitalopram Oxalate 10 MG TABLET 1 TAB PO DAILY DEPRESSION (Reported) Metoprolol Tartrate 50 MG TABLET 1 TAB PO BID BLOOD PRESSURE (Reported) Potassium Chloride 20 MEQ TAB.ER.PRT 1 TAB PO DAILY ELECTROLYTES (Reported) Simvastatin (Simvastatin*) 40 MG TABLET 1 TAB PO QPM CHOLESTEROL (Reported) Current Medications: Current Medications Sig/Tayo Start time Last Medication Dose Route Stop Time Status Admin Dexamethasone 4 MG Q6 02/01 2359 AC 02/03 Dextrose/Water 50 ML IV 02/03 1259 0639 Heparin Sodium 5,000 UNIT Q8 02/02 1400 AC 02/03 (Porcine) SC 0548 Hydralazine HCl 5 MG SEE ADMIN CRITERIA.. 02/01 2200 AC IV Levetiracetam 500 MG Q12H 02/02 1700 AC 02/03 N/A 1 UNIT IV 0549 Lorazepam 1 MG Q6PRN PRN 02/01 2200 AC IV Morphine Sulfate 2 MG Q4P PRN 05/29 2200 AC IV Omeprazole 20 MG DAILY 02/02 1312 02/03 PO 0639 Ondansetron HCl 4 MG Q6P PRN 02/02 0130 AC IV Review of Systems Review of Systems: REVIEW OF SYSTEMS: (-) = negative / normal blank = not discussed Neurologic: see HPI Eyes: (-) ENT: (-) Constitutional: As per HPI CV: (-) Respiratory: As per HPI /Renal: As per HPI Musculoskeletal: (-) Skin: History of widespread keratotic skin lesions Psychiatric: (-) Heme: (-) GI: (-) Allergy/Immune: (-) Endocrine: (-) Other: (-) Past History Travel History Traveled to [place] past 21 day No Medical History Blood Transfusion Hx: No Neurological: "SPOTS ON BRAIN' EENT: NONE Cardiovascular: hypertension, hyperlipidemia Respiratory: NONE Gastrointestinal: NONE Hepatic: NONE Renal: NONE Musculoskeletal: NONE Psychiatric: NONE Endocrine: NONE Blood Disorders: NONE Cancer(s): renal cell carcinoma with mets to lung and brain, undergoing xrt 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 Home Who Do You Live With? child Smoking Status: Never Smoked ETOH Use: denies use Illicit Drug Use: denies illicit drug use Exam & Diagnostic Data Vital Signs and I&O Vital Signs Date Time Temp Pulse Resp B/P B/P Pulse O2 O2 Flow FiO2 Mean Ox Delivery Rate 02/03 0627 98.1 72 20 120/50 96 Nasal 1.5L Cannula 02/03 0000 Nasal 2.0L Cannula 02/02 2202 97.6 76 18 128/54 95 Nasal 1.5L Cannula 02/02 1422 98.2 60 20 118/60 93 Intake & Output 02/03 1600 02/03 0800 02/03 0000 Intake Total 300 0 Output Total 150 200 Balance 150 -200 Intake, IV 200 Intake, Oral 100 0 Number 0 0 Bowel Movements Output, Urine 150 200 Physical Exam: Awake alert sitting out of bed in the chair Head normocephalic atraumatic with alopecia Neck supple Oral cavity, Large right lateral tongue contusion/laceration Heart regular rate and rhythm Abdomen soft Extremities no clubbing cyanosis or edema. Intact peripheral pulses. Multiple keratotic lesions on both legs Neurologic: She was awake and alert. She was oriented to person and place. Disoriented to time. She thought the year was 1935 and the month September. She thought the current [place] president was Lamont Mccartney. She was able to name most common objects. She made one paraphasic air or when reading the words on the NIH stroke scale score card. Speech was somewhat telegraphic, lacking in detail, and perseverative when describing the "cookie theft" picture Motor: Normal muscle bulk tone and strength. No abnormal involuntary movements Rapid alternating and fine motor movements intact No ataxia on finger-nose or ypmx-di-iute testing. Light touch sensation intact Tendon reflexes symmetrically trace to absent. Plantar responses flexor. Gait not tested Last 48 Hours of Lab Results: Laboratory Tests 02/01 1305 Urines Urine Color (YEL,AMB,STR) YEL Urine Clarity (CLEAR) CLEAR Urine pH (5.0 - 8.0) 6.0 Ur Specific [place] (1.001 - 1.035) 1.020 Urine Protein (NEG,<30 MG/DL) 100 H Urine Ketones (NEG) NEG Urine Nitrite (NEG) NEG Urine Bilirubin (NEG) NEG Urine Urobilinogen (0.1 - 1.0 EU/dl) 0.2 Ur Leukocyte Esterase (NEG) NEG Ur Microscopic SEDIMENT EXAMINED Urine RBC (0 - 5 /HPF) 5-10 H Urine WBC (0 - 2 /HPF) RARE Ur Epithelial Cells (NONE,FEW) RARE Urine Hemoglobin (NEG) SMALL H Urine Glucose (N MG/DL) NEG 02/01 02/01 1258 1255 Chemistry Sodium (137 - 145 mmol/L) 136 L Potassium (3.5 - 5.1 mmol/L) 3.7 Chloride (98 - 107 mmol/L) 99 Carbon Dioxide (22 - 30 mmol/L) 24 Anion Gap (5 - 16) 13 BUN (7 - 17 mg/dL) 21 H Creatinine (0.5 - 1.0 mg/dL) 0.6 Estimated GFR (>60 ml/min) > 60 BUN/Creatinine Ratio (7 - 25 %) 35.0 H Glucose (65 - 99 mg/dL) 135 H Calcium (8.4 - 10.2 mg/dL) 9.0 Total Bilirubin (0.2 - 1.3 mg/dL) 0.8 AST (14 - 36 U/L) 31 ALT (9 - 52 U/L) 58 H Alkaline Phosphatase (<127 U/L) 134 H Troponin I (< 0.11 ng/ml) 0.26 *H Cancelled Total Protein (6.3 - 8.2 g/dL) 6.3 Albumin (3.5 - 5.0 g/dL) 3.2 L Globulin (1.9 - 4.2 gm/dL) 3.1 Albumin/Globulin Ratio (1.1 - 2.2 %) 1.0 L TSH (0.270 - 4.200 uIU/mL) 1.180 Thyroxine (T4) (4.5 - 10.9 ug/dL) 6.1 Thyroxine Binding Indx (23.5 - 40.5 % UPTAKE) 38.9 Hematology CBC w Diff MAN DIFF ORDERED WBC (4.8 - 10.8 /CUMM) 18.1 H RBC (4.20 - 5.40 /CUMM) 5.01 Hgb (12.0 - 16.0 G/DL) 14.6 Hct (37 - 47 %) 46.3 MCV (81.0 - 99.0 FL) 92.5 MCH (27.0 - 31.0 PG) 29.1 RDW (11.5 - 14.5 %) 19.7 H Plt Count (130 - 400 /CUMM) 238 MPV (7.4 - 10.4 FL) 6.4 L Gran % (42.2 - 75.2 %) 91.6 H Lymphocytes % (20.5 - 51.1 %) 2.3 L Monocytes % (1.7 - 9.3 %) 5.7 Eosinophils % (0 - 5 %) 0 Basophils % (0.0 - 2.0 %) 0.4 Absolute Granulocytes (1.4 - 6.5 /CUMM) 16.6 H Absolute Lymphocytes (1.2 - 3.4 /CUMM) 0.4 L Absolute Monocytes (0.10 - 0.60 /CUMM) 1.0 H Absolute Eosinophils (0.0 - 0.7 /CUMM) 0 Absolute Basophils (0.0 - 0.2 /CUMM) 0.1 Platelet Estimate (ADEQUATE) VERIFIED BY SMEAR Polychromasia 1+ Anisocytosis 1+ PUBS MCHC (33.0 - 37.0 G/DL) 31.5 L Toxicology Serum Alcohol (<10 MG/DL) < 10.0 02/01 1205 Toxicology Urine Opiates Screen (>2000 NG/ML) < 100.00 Methadone Screen (>300 NG/ML) 46 Barbiturate Screen (>200 NG/ML) < 60 Ur Phencyclidine Scrn (>25 NG/ML) < 6.00 Amphetamines Screen (>1000 NG/ML) < 100 U Benzodiazepines Scrn (>200 NG/ML) < 85 Urine Cocaine Screen (>300 NG/ML) < 50 Urine Cannabis Screen (>50 NG/ML) < 5.00 Imaging/Other Studies: CT brain and cervical spine FINDINGS: Brain: There are multiple hyperdense multiple lesions throughout both cerebral hemispheres with vasogenic edema there is a new large lesion measuring 2.2 cm in left frontoparietal region adjacent to the central sulcus image 21, series 3 with moderate vasogenic edema. Previously seen smaller lesions in the right frontal lobe and left frontal lobe have increased in size. There is a right posterior parietal no hyperdense lesion with edema but no midline shift. The lateral ventricles are enlarged and so are the cortical sulci. There is no intra-axial or extra-axial bleed. The bone windows reveal no calvarial abnormality. Bilateral paranasal sinuses and mastoid air cells are well-aerated. Cervical spine: On sagittal images there is mild straightening of cervical lordosis. Grade 1 anterolisthesis C4 over C5 and C5 over C6 is noted. Mild loss of C5-C6 at C4-C5 disc heights is noted. There is C2-C3 through C7-T1 bilateral facet joint hypertrophy and arthropathy. IMPRESSION: Multiple metastatic brain lesions. There are new brain lesions as well as the previously noted brain lesions are slightly larger. There is vasogenic edema in the new lesions. No midline shift seen. There is no calvarial lesions. No acute bleed is seen. Mild cerebral volume loss. Grade 1 anterolisthesis C4 over C5 and C5-C6 with degenerative disc changes at the C5-C6 and C4-C5 disc levels. There is no visible acute fracture or dislocation. There are degenerative facet joint arthropathy throughout the cervical spine. 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 She has completed whole brain XRT as of January 06. She appears to have had some rebound cerebral edema in the setting of a rapid Decadron taper prior to most recent chemotherapy treatment. Recommendations: Continue Keppra 500 mg twice a day switch to by mouth Continue dexamethasone 4 mg every 6 hours, with slow taper thereafter as per her oncologist Upon review of Epic notes, she has been seen by the neurosurgery service but never by the neurology service I would recommend ongoing neurologic follow-up, it could either be done through our office or through [place]. Consult Acknowledgment - Thank you for your consult request.
--- NOTE | 2017-02-03 10:54 | Discharge Summary ---
Visit Information Visit Dates Admission Date: 02/01/17 Discharge Date: 02/04/17 Hospital Course Course Attending Physician: SHREE SANCHES MD Primary Care Physician: ZUHAIR CHAUDHRY MD Consulting Request: 1 Consulting Specialty: Neurology Consulting Request: 2 Consulting Specialty: Cardiology Hospital Course: This is an 81 yo lady with depression, HTN, and stage IV renal cell carcinoma who recently received nivolumab who presented to the [facility] ED with altered mental status, found unresponsive on floor by family. She was found to have intracranial hemorrhagic lesions in 09/10/2016 with follow up MRI in 11/[address] of the chest demonstrated innumerable metastases identified in bilateral lungs. Large right pleural effusion with adjacent lung collapse. Metastatic foci also identified in pleural effusion, likely reflecting pleural metastases. On 12/23/2016, a left supraclavicular lymph node FNA was positive for metastatic carcinoma c/w renal primary, most likely clear cell-type. She received radiotherapy to her brain and was started on Decadron orally. Treatment of Decadron was tapered off to try different chemotherapy which patient did not tolerate it well and had nausea and vomiting for which she was admitted to [place]. At that time that treatment was discontinued and patient was resumed on low-dose Decadron, patient was active, talking and ambulating the night before admission according to family. According to ER records patient was nonverbal, nonresponsive to verbal stimuli upon arrival, opened eyes for pain. But according to family she improved a little bit in ER. Family did not witness any seizures along this course. Ph/ex at the time of admission: Afebrile, pulse in 70s to 80s, RR 18, blood pressure 164/70, saturating well on room air. Limited examination as patient did not respond to verbal stimuli, pupils equal bilaterally reactive to light. Did not follow instructions. Spontaneously moved right upper extremity, mild drooping of angle of mouth on left side, abdomen soft, nontender bowel sounds present, CVS: S1-S2 RRR. Labs on admission: WBC 18.1, neutrophils 91%, hemoglobin 14.6, hematocrit 46.3, platelet 238, sodium 136, BUN 21, creatinine 0.6, glucose 135, ALT 58, alkaline phosphatase 134, troponin 0.26. UA, U tox unremarkable. CT head, cervical spine, chest x-ray: 1. Multiple metastatic brain lesions. There are new brain lesions as well as the previously noted brain lesions are slightly larger. There is vasogenic edema in the new lesions. No midline shift seen. There is no calvarial lesions. 2 No acute bleed is seen. 3. Mild cerebral volume loss. 4. Grade 1 anterolisthesis C4 over C5 and C5-C6 with degenerative disc changes at the C5-C6 and C4-C5 disc levels. There is no visible acute fracture or dislocation. There are degenerative facet joint arthropathy throughout the cervical spine. 5. Multiple scattered ill-defined lung nodules are noted bilaterally with the largest measuring 2.7 cm, seen at left upper lung zone, may represent metastatic disease in this patient with history of cancer. Superimposed ill-defined patchy opacities are also noted at both lung bases, may represent superimposed pneumonia. The patient was admitted to general medicine floor. The following problems were addressed during the course of her hospital stay: #Vasogenic cerebral edema from brain metastases,Toxic encephalopathy,Metastatic renal cell carcinoma: The patient was started on IV dexamethasone. He was started on PRN IV morphine for severe pain (did not require any) , PRN IV antiemetics, PRN IV Ativan for seizure(did not require any IV Ativan). Was on aspiration and seizure prophylaxis. Upon further evaluation she was noted to have a tongue bite which is highly suggestive of seizure episode and was started on IV Keppra for seizure prophylaxis. Neurology and oncology were consulted. She was evaluated by hospice team, and did not qualify for inpatient hospice. No seizure-like activity/episode of seizure noted during her hospital stay. She was started on PPI while on steroids. Latest formal swallow evaluation was performed on 02/04/17 , recommended regular diet. * Oncology recommended Dexamethasone 4 mg every 6 hours and to discuss goals of care per primary oncologist. Will need outpatient slow taper as per her oncologist. * Neurology recommended to continue Keppra 500 mg twice a day PO and to follow- up with a neurology service as outpatient. #Hypertension: Presented with a pressure of 191/79, which improved to 160/70 after rechecking. Blood Pressure trended down to 120/50 during the course of her hospital stay without any intervention. The patient did not receive any of her TOOL [employer] antihypertensive medications as inpatient and her blood pressure was stable in sys 120s. TO[employer] Amlodipine medications to be discontinued upon discharge. Metoprolol to be continued as she became slightly tachycardic on 02/04/2017. Transient episode of hypersion on admission likely 2/2 steroids/seizure like activity. #DVT PPX: SC heparin #Code status: DNR/DNI #Patient seen and examined on her discharge day on 02/04/17; is stable to discharge to rehab. Complications: None Allergies: Coded Allergies: No Known Allergies (12/31/16) Significant Procedures: None Pertinent Lab Results: Laboratory Tests 02/01 1305 Urines Urine Color (YEL,AMB,STR) YEL Urine Clarity (CLEAR) CLEAR Urine pH (5.0 - 8.0) 6.0 Ur Specific [place] (1.001 - 1.035) 1.020 Urine Protein (NEG,<30 MG/DL) 100 H Urine Ketones (NEG) NEG Urine Nitrite (NEG) NEG Urine Bilirubin (NEG) NEG Urine Urobilinogen (0.1 - 1.0 EU/dl) 0.2 Ur Leukocyte Esterase (NEG) NEG Ur Microscopic SEDIMENT EXAMINED Urine RBC (0 - 5 /HPF) 5-10 H Urine WBC (0 - 2 /HPF) RARE Ur Epithelial Cells (NONE,FEW) RARE Urine Hemoglobin (NEG) SMALL H Urine Glucose (N MG/DL) NEG 02/01 02/01 1258 1255 Chemistry Sodium (137 - 145 mmol/L) 136 L Potassium (3.5 - 5.1 mmol/L) 3.7 Chloride (98 - 107 mmol/L) 99 Carbon Dioxide (22 - 30 mmol/L) 24 Anion Gap (5 - 16) 13 BUN (7 - 17 mg/dL) 21 H Creatinine (0.5 - 1.0 mg/dL) 0.6 Estimated GFR (>60 ml/min) > 60 BUN/Creatinine Ratio (7 - 25 %) 35.0 H Glucose (65 - 99 mg/dL) 135 H Calcium (8.4 - 10.2 mg/dL) 9.0 Total Bilirubin (0.2 - 1.3 mg/dL) 0.8 AST (14 - 36 U/L) 31 ALT (9 - 52 U/L) 58 H Alkaline Phosphatase (<127 U/L) 134 H Troponin I (< 0.11 ng/ml) 0.26 *H Cancelled Total Protein (6.3 - 8.2 g/dL) 6.3 Albumin (3.5 - 5.0 g/dL) 3.2 L Globulin (1.9 - 4.2 gm/dL) 3.1 Albumin/Globulin Ratio (1.1 - 2.2 %) 1.0 L TSH (0.270 - 4.200 uIU/mL) 1.180 Thyroxine (T4) (4.5 - 10.9 ug/dL) 6.1 Thyroxine Binding Indx (23.5 - 40.5 % UPTAKE) 38.9 Hematology CBC w Diff MAN DIFF ORDERED WBC (4.8 - 10.8 /CUMM) 18.1 H RBC (4.20 - 5.40 /CUMM) 5.01 Hgb (12.0 - 16.0 G/DL) 14.6 Hct (37 - 47 %) 46.3 MCV (81.0 - 99.0 FL) 92.5 MCH (27.0 - 31.0 PG) 29.1 RDW (11.5 - 14.5 %) 19.7 H Plt Count (130 - 400 /CUMM) 238 MPV (7.4 - 10.4 FL) 6.4 L Gran % (42.2 - 75.2 %) 91.6 H Lymphocytes % (20.5 - 51.1 %) 2.3 L Monocytes % (1.7 - 9.3 %) 5.7 Eosinophils % (0 - 5 %) 0 Basophils % (0.0 - 2.0 %) 0.4 Absolute Granulocytes (1.4 - 6.5 /CUMM) 16.6 H Absolute Lymphocytes (1.2 - 3.4 /CUMM) 0.4 L Absolute Monocytes (0.10 - 0.60 /CUMM) 1.0 H Absolute Eosinophils (0.0 - 0.7 /CUMM) 0 Absolute Basophils (0.0 - 0.2 /CUMM) 0.1 Platelet Estimate (ADEQUATE) VERIFIED BY SMEAR Polychromasia 1+ Anisocytosis 1+ PUBS MCHC (33.0 - 37.0 G/DL) 31.5 L Toxicology Serum Alcohol (<10 MG/DL) < 10.0 02/01 1205 Toxicology Urine Opiates Screen (>2000 NG/ML) < 100.00 Methadone Screen (>300 NG/ML) 46 Barbiturate Screen (>200 NG/ML) < 60 Ur Phencyclidine Scrn (>25 NG/ML) < 6.00 Amphetamines Screen (>1000 NG/ML) < 100 U Benzodiazepines Scrn (>200 NG/ML) < 85 Urine Cocaine Screen (>300 NG/ML) < 50 Urine Cannabis Screen (>50 NG/ML) < 5.00 Disposition Summary Disposition Principal Diagnosis: Vasogenic cerebral edema from brain metastases Additional Diagnosis: Toxic encephalopathy Metastatic renal cell carcinoma Discharge Disposition: SNF Discharge Instructions General Discharge Information Code Status: Do Not Resucitate/Intubat Patient's Diet: Regular diet. Patient's Activity: As tolerated. Follow-Up Instructions/Appts: Please follow up with your oncologist within a week of discharge. Follow up with PCP within a week discharge. Follow up with neurologist within a week of discharge. Medications at Discharge Discharge Medications: Stop taking the following medications: Amlodipine Besylate (Amlodipine Besylate) 5 MG TABLET ORAL DAILY Qty = 90 Continue taking these medications: Escitalopram Oxalate (Escitalopram Oxalate) 10 MG TABLET 1 Tablet ORAL DAILY Qty = 90 Comments: NOT GIVEN AT HOSPITAL Metoprolol Tartrate (Metoprolol Tartrate) 50 MG TABLET 1 Tablet ORAL TWICE DAILY Qty = 180 Comments: Last Taken: 02/04/17 Time: 8 AM Simvastatin (Simvastatin*) 40 MG TABLET 1 Tablet ORAL Every night Qty = 90 Comments: NOT GIVEN AT HOSPITAL Potassium Chloride (Potassium Chloride) 20 MEQ TAB.ER.PRT 1 Tablet ORAL DAILY Qty = 180 Comments: NOT GIVEN AT HOSPITAL Start taking the following new medications: Dexamethasone (Dexamethasone) 4 MG TABLET 4 Milligram ORAL See Instructions Qty = 45 No Refills Instructions: 4mg 1tab four times a day for two days ( 02/04/2017 - 02/05/2017) 4mg 1tab three times a day for three days (02/06/2017 - 02/08/2017) 4mg 1tab two times a day for three days (02/09/2017 - 02/11/2017) 4mg 0.5tab two times a day please follow up with your oncologist for further management. Comments: Last Taken: 02/04/17 Time: 11 AM Levetiracetam (Keppra) 500 MG TABLET 1 Tablet ORAL TWICE DAILY Qty = 30 No Refills Comments: Last Taken: 02/04/17 Time: 8 AM Copies To: ZUHAIR CHAUDHRY MD
--- NOTE | 2017-02-03 11:59 | Patient Discharge Instructions ---
Discharge Instructions General Discharge Information You were seen/treated for: generalized weakness, Aletered mental status and Seizure found to have metastasis to brain. Special Instructions: Please follow up with your oncologist within a week of discharge. Follow up with PCP within a week discharge. Follow up with neurologist within a week of discharge. Diet Additional DIET Information: Regular diet Activity Additional ACTIVITY Info: As tolerated. Acute Coronary Syndrome Inclusion Criteria At DC or during hospital stay patient has or had the following: ACS DIAGNOSIS No Discharge Core Measures Meds if any: Prescribed or Continued at Discharge Meds if any: NOT Prescribed or Continued at Discharge Congestive Heart Failure Inclusion Criteria At DC or during hospital stay patient has or had the following: CHF DIAGNOSIS No Discharge Core Measures Meds if any: Prescribed or Continued at Discharge Meds if any: NOT Prescribed or Continued at Discharge Cerebrovascular accident Inclusion Criteria At DC or during hospital stay patient has or had the following: CVA/TIA Diagnosis No Discharge Core Measures Meds if any: Prescribed or Continued at Discharge Meds if any: NOT Prescribed or Continued at Discharge Venous thromboembolism Inclusion Criteria VTE Diagnosis No VTE Type NONE VTE Confirmed by (Test) NONE Discharge Core Measures - Per Current guidelines, there needs to be overlap - treatment for the first 5 days of Warfarin therapy. - If discharged on Warfarin prior to 5 days of - overlap therapy, the patient will need to be - assessed for post discharge needs including - *Post discharge parental anticoagulation - *Warfarin and/or parental anticoagulation education - *Follow up date to check INR post discharge At least 5 days overlap therapy as Inpatient No Meds if any: Prescribed or Continued at Discharge Warfarin No Note: Overlap Therapy is Warfarin and Anticoagulant Meds if any: NOT Prescribed or Continued at Discharge
[2017-02-03] MEDS ORDERED: KEPPRA500 M1 PO (13:26)
[2017-02-03] MEDS ORDERED: DEXAMETHASONE4 M1 PO ×2 (13:54→14:15)
[2017-02-03 14:39] VITALS: BP 140/60
[2017-02-03 22:26] VITALS: BP 144/70
[2017-02-04 05:47] VITALS: BP 140/64
--- NOTE | 2017-02-04 07:10 | PN- Housestaff ---
SANTOSH YA,EWA 02/04/17 0710: Subjective Follow-up For: Metastatic renal cell cancer Episode of altered mental status ? Seizure Complaints: no complaints Subjective: Patient is seen and examined at bed side. She was oriented x 3. She doesnt had any active complains, but on examination ahe was found to have tachycardia. I talked to her and she told that she is having hx of palpitation and was on Metoprolol 50 BID. Review of Systems Constitutional: Denies: no symptoms. Comments: Patient denies any active complaints. Objective Last 24 Hrs of Vital Signs/I&O Vital Signs Date Time Temp Pulse Resp B/P B/P Pulse O2 O2 Flow FiO2 Mean Ox Delivery Rate 02/04 0822 110 02/04 0815 112 02/04 0547 98.1 88 20 140/64 93 Room Air 02/03 2226 98.2 93 20 144/70 95 Room Air 02/03 1439 96.6 105 20 140/60 96 02/03 1108 Nasal 1.5L Cannula Intake & Output 02/04 1600 02/04 0800 02/04 0000 Intake Total 240 450 Output Total 400 400 Balance -160 50 Intake, Oral 240 450 Number 0 Bowel Movements Output, Urine 400 400 Physical Exam General Appearance: Alert, Oriented X3, Cooperative, No Acute Distress, generalized muscle wasting,alopecia, Cardiovascular: Normal S1, Normal S2, tachycardia Lungs: Clear to Auscultation, Normal Air Movement Abdomen: Soft, No Tenderness Extremities: No Clubbing, No Cyanosis Current Medications: Current Medications Sig/Tayo Start time Last Medication Dose Route Stop Time Status Admin Dexamethasone 4 MG Q6 02/03 1200 AC 02/04 PO 0627 Dexamethasone 4 MG Q6 02/01 2359 DC 02/03 Dextrose/Water 50 ML IV 02/03 1259 1229 Heparin Sodium 5,000 UNIT Q8 02/02 1400 AC 02/04 (Porcine) SC 0627 Hydralazine HCl 5 MG SEE ADMIN CRITERIA.. 02/01 2200 AC IV Levetiracetam 500 MG BID 02/03 2200 AC 02/04 PO 0848 Levetiracetam 500 MG Q12H 02/02 1700 DC 02/03 N/A 1 UNIT IV 0549 Lorazepam 1 MG Q6PRN PRN 02/01 2200 AC IV Metoprolol Tartrate 50 MG BID 02/04 1000 AC 02/04 PO 0848 Morphine Sulfate 2 MG Q4P PRN 02/01 2200 AC IV Omeprazole 20 MG DAILY 02/02 1312 02/04 PO 0627 Ondansetron HCl 4 MG Q6P PRN 02/02 0130 AC IV Assessment/Plan Assessment: 81 year old woman with a PMH of HTN, HLD, depression, and metastatic renal cell cancer diagnosed in November 2016. She had metastasis to the brain and received radiotherapy sessions in December 2016. She was then placed on dexamethasone 4 mg BID which was weaned off on Jan 15 2017 for her to receive a dose of Opdivo. She did not tolerate the medication and had episodes of weakness and vomitting which gradually resolved over about a week. She was in her usual active, communicative and ambulant state of health until last night when her family noted she was slightly confused and slept on the wrong side of her bed. BIBA to [facility] when found to be unresponsive on the ground in her bedroom with stool smeared around the room. Vital signs -temperature 96.6, pulse 110, respiratory 20, blood pressure 140/60, SPO2 96% on room air. Pertinent labs -WBC 18.1, granulocytes 91.6, lymphocyte 2.3,Na -136, urine protein 100, Urine culture-no growth after [address] scan of the head -Multiple metastatic brain lesions. There are new brain lesions as well as the previously noted brain lesions are slightly larger. There is vasogenic edema in the new lesions. No midline shift seen. There is no calvarial lesions. Plan - * It was planned, initially, that the patient is going towards hospice care. We placed a consult for hospice nurse, did swallow evaluation and talked to the family. Family is very clear about the prognosis and they do not want any active intervention. * Patient passes swallow evaluation and they started patient on chopped and thin diet. She is able to take 100% of her meal. * For the inpatient hospice, patient do not need criteria. The patient is planned to go into short-term rehabilitation. * We placed a consult for oncologist and he advised to continue dexamethasone in high doses, with very slow taper. We stopped IV dexamethasone and started her on tablet dexamethasone 4 milligrams every 6 hourly. We will taper it every 4 days. * We took the consult from the neurologist and she advised to start patient on Keppra 500 twice a day. He also advised that patient should follow the neurosurgery. * Patient started having tachycardia and palpitation. She was on metoprolol, tartrate 50 milligrams twice a day. We started again. * Possible discharge today to Short-term rehabilitation. Diet -chopped and thin diet DVT prophylaxis-ALP S/heparin CODE STATUS-DNR/DNI Problem List: 1. Cachexia 2. Metastatic renal cell carcinoma 3. Brain metastases Pain Ratin Pain Location: not applicable Pain Goal: Remain pain free Pain Plan: [id number] Tomorrow's Labs & Rationales: Not required as patient is discharged DVT/Prophylaxis: mechanical, pharmacological Consulting Request: Consulting Specialty: Cardiology SHREE SANCHES 02/04/17 1134: Attending MD Review Statement Attending Statement Attending MD Statement: examined this patient, discuss w/resident/PA/CONTROL ROOM OPERATOR, agreed w/resident/PA/CONTROL ROOM OPERATOR, discussed with family, reviewed EMR data (avail), discussed with nursing, discussed with case mgmt, reviewed images, amended to note Attending Assessment/Plan: ASSESSMENT 1. Metastatic renal cell carcinoma 2. Encephalopathy 3. Mets to brain and lung 4. hypertension. 5. Brain edema. PLAN family aware about prognosis and does not want heroic measures. change iv steroids to Po steroids, cont supportive care. seziure prophyalxis as per neuro, f/u neurology and oncology. passed speech/swallow testing obtain previous medical records gi/dvt prophyalxis PT eval for STR DNR/DNI d/c planning, medically stable, f/u PCP/neurology/oncology at [facility] as o/p. overall prognosis poor.
[2017-02-04 10:43] VITALS: BP 128/62
[2017-02-04] MEDS ORDERED: DEXAMETHASONE4 M1 PO (10:57)
[2017-02-04 12:19] VITALS: BP 128/62
== END 2017-02-04 14:01 ==
LOC: DELPENDDIS → ERH 12:33 → ERHI 17:46 → 2NA 17:46 → ENRESERV 18:39 → ENTRNSPT 19:40 → 2NA 19:56 → CMPTRNSPT 20:10 → 2NA 20:44 → ENPENDDIS 02-03 14:33 → 2NA 02-04 14:01
PROVIDERS: Emergency Medicine; ADMIT Internal Medicine
DX: C79.31 Secondary malignant neoplasm of brain (principal); C78.00 Secondary malignant neoplasm of unspecified lung; F32.9 Major depressive disorder, single episode, unspecified; I10 Essential (primary) hypertension; E78.5 Hyperlipidemia, unspecified; C64.9 Malignant neoplasm of unspecified kidney, except renal pelvis; R64 Cachexia; J90 Pleural effusion, not elsewhere classified; G93.6 Cerebral edema; G92 Toxic encephalopathy; R56.9 Unspecified convulsions; R00.0 Tachycardia, unspecified
CPT/HCPCS: 1328; 1530; 1748; 80307; 81001; 87086; 92526-GN; 92610-GN; 93005; 93010; 96372; 96374; 96375; 97112-GP; 97116-GP; 97161-GP; 97530-GP; G0378; G0480; G8996-GN; G8997-GN; G8998-GN; J1100; J1644; J1953